=== PATIENT | female | born 1980 | race Caucasian/White ===

== ENCOUNTER → 2017-01-03 | Outpatient (CLI) | payer MEDICAID | END | disposition home or self-care (01) | LOC: PER 09:05 | PROVIDERS: ATTEND Obstetrics & Gynecology | DX: O24.419 Gestational diabetes mellitus in pregnancy, unspecified control (principal); O09.522 Supervision of elderly multigravida, second trimester; Z3A.26 26 weeks gestation of pregnancy | CPT/HCPCS: 97804 ==